=== PATIENT | female | born 1970 | race Caucasian/White ===

== ENCOUNTER 2016-07-22 20:40 | Emergency (ER) | payer OTHER ==
[2016-07-22 20:52] VITALS: TEMP 99; BMI 25.1
[2016-07-22] MEDS ORDERED: SODIUM CHLORIDE 1,000 ML IV STA (21:01)
[2016-07-22] MEDS ORDERED: ONDANSETRON 4 MG/2 ML VIAL IVPB ONE (21:01)
--- NOTE | 2016-07-22 21:02 | PDOC ---
History of Present Illness - General History Source: Patient Exam Limitations: No Limitations - History of Present Illness Initial Comments: 07/22/16 22:59 The patient is a 46 year old female, with a significant past medical history of hyperparathyroidism and kidney stones, who presents to the emergency department with abdominal pain onset today. She describes her pain as localized in the left lower quadrant, ranging from mild to moderate, with radiation to her left flank. She notes that certain movements exacerbates her pain. The patient denies chest pain, shortness of breath, headache and dizziness. Denies fever, chills, nausea, vomit, diarrhea and constipation. Denies dysuria, frequency, urgency and hematuria. Allergies: None Past surgical history: Thyroid surgery (12/2015), kidney stone removal Social history: +Social alcohol use. No tobacco or drug use reported <David Dixon - Last Filed: 07/23/16 00:22> <Saray Dunlap - Last Filed: 07/23/16 01:19> - General Chief Complaint: Pain, Acute Stated Complaint: ABDOMINAL PAIN, VOMITING Time Seen by Provider: 07/22/16 21:01 Past History <David Dixon - Last Filed: 07/23/16 00:22> - Past Medical History Anemia: No Asthma: No Cancer: No Cardiac Disorders: No CVA: No COPD: No CHF: No Dementia: No Diabetes: No GI Disorders: No Disorders: No HTN: No Hypercholesterolemia: No Liver Disease: No Seizures: No Thyroid Disease: Yes - Psycho/Social/Smoking Cessation Hx Suicidal Ideation: No Smoking History: Never smoked Information on smoking cessation initiated: No Hx Alcohol Use: Yes (weekends) Drug/Substance Use Hx: No Substance Use Type: None <Saray Dunlap - Last Filed: 07/23/16 01:19> - Past Medical History Allergies/Adverse Reactions: Allergies Allergy/AdvReac Type Severity Reaction Status Date / Time No Known Drug Allergies Allergy Verified 07/22/16 20:50 Home Medications: Ambulatory Orders Levothyroxine [Synthroid -] 50 mcg PO DAILY 12/21/15 Ketorolac Tromethamine [Toradol] 10 mg PO Q6H PRN #12 tablet 07/23/16 Sulfamethoxazole/Trimethoprim [Bactrim Ds -] 1 tab PO BID #14 tablet 07/23/16 Tamsulosin HCl [Flomax] 0.4 mg PO DAILY #7 capsule 07/23/16 Review of Systems - Review of Systems Able to Perform ROS?: Yes Comments:: 07/22/16 22:59 GENERAL/CONSTITUTIONAL: No fever or chills. No weakness. HEAD, EYES, EARS, NOSE AND THROAT: No change in vision. No ear pain or discharge. No sore throat. CARDIOVASCULAR: No chest pain or shortness of breath RESPIRATORY: No cough, wheezing, or hemoptysis. GASTROINTESTINAL: +Left lower quadrant pain. No nausea, vomiting, diarrhea or constipation. GENITOURINARY: +Left flank pain. No dysuria, frequency, or change in urination. MUSCULOSKELETAL: No joint or muscle swelling or pain. No neck or back pain. SKIN: No rash NEUROLOGIC: No headache, vertigo, loss of consciousness, or change in strength/ sensation. ENDOCRINE: No increased thirst. No abnormal weight change HEMATOLOGIC/LYMPHATIC: No anemia, easy bleeding, or history of blood clots. ALLERGIC/IMMUNOLOGIC: No hives or skin allergy. <David Dixon - Last Filed: 07/23/16 00:22> *Physical Exam - Vital Signs Last Vital Signs Temp Pulse Resp BP Pulse Ox 99 F 89 18 154/89 100 07/22/16 20:50 07/22/16 20:50 07/22/16 20:50 07/22/16 20:50 07/22/16 20:50 - Physical Exam Comments: 07/22/16 23:03 GENERAL: Awake, alert, and fully oriented, in mild distress HEAD: No signs of trauma, normocephalic, atraumatic EYES: PERRLA, EOMI, sclera anicteric, conjunctiva clear ENT: Auricles normal inspection, hearing grossly normal, nares patent, oropharynx clear without exudates. Moist mucosa NECK: Normal ROM, supple, no lymphadenopathy, JVD, or masses LUNGS: No distress, speaks full sentences, clear to auscultation bilaterally HEART: Regular rate and rhythm, normal S1 and S2, no murmurs, rubs or gallops, peripheral pulses normal and equal bilaterally. ABDOMEN: Soft, nontender, normoactive bowel sounds. No guarding, no rebound. No masses EXTREMITIES: Normal inspection, Normal range of motion, no edema. No clubbing or cyanosis. NEUROLOGICAL: Cranial nerves II through XII grossly intact. Normal speech, normal gait, no focal sensorimotor deficits SKIN: Warm, Dry, normal turgor, no rashes or lesions noted. <David Dixon - Last Filed: 07/23/16 00:22> - Vital Signs Last Vital Signs Temp Pulse Resp BP Pulse Ox 99 F 89 18 154/89 100 07/22/16 20:50 07/22/16 20:50 07/22/16 20:50 07/22/16 20:50 07/22/16 20:50 <Saray Dunlaph - Last Filed: 07/23/16 01:19> ED Treatment Course - LABORATORY CBC & Chemistry Diagram: 07/22/16 21:20 07/22/16 21:20 - ADDITIONAL ORDERS Additional order review: Laboratory Results 07/22/16 07/22/16 21:20 21:20 Sodium 140 Potassium 3.9 Chloride 101 Carbon Dioxide 30 Anion Gap 9 BUN 15 Creatinine 0.8 Creat Clearance w eGFR > 60 Random Glucose 97 Calcium 10.1 Total Bilirubin 0.5 AST 15 ALT 17 Alkaline Phosphatase 139 H Total Protein 8.1 Albumin 4.3 Lipase 155 Serum , Qual Negative 07/22/16 21:20 RBC 5.84 H MCV 95.0 MCHC 34.1 RDW 14.0 MPV 8.8 Neutrophils % 84.2 H Lymphocytes % 10.2 Monocytes % 5.2 Eosinophils % 0.1 Basophils % 0.3 - RADIOLOGY Radiograph Interpretation: 07/23/16 00:22 CT Abdomen and pelvis without contrast Reviewed by: Dr. Bryson Garcia Impression: Moderate degree of left-sided hydronephrosis and mild perinephric inflammation secondary to a 6 x 5 mm distal ureteral stone - Medications Given in the ED: ED Medications Discontinued Medications Generic Name Dose Route Start Last Admin Trade Name Freq PRN Reason Stop Dose Admin Sodium Chloride 1,000 mls @ 1,000 mls/hr 07/22/16 21:01 07/22/16 21:23 Normal Saline - IV 07/22/16 22:00 1,000 mls/hr ASDIR STA Administration Ondansetron HCl 4 mg 07/22/16 21:01 07/22/16 21:24 Zofran Injection IVPB 07/22/16 21:02 4 mg ONCE ONE Administration <David Dixon - Last Filed: 07/23/16 00:22> - LABORATORY CBC & Chemistry Diagram: 07/22/16 21:20 07/22/16 21:20 <Saray Dunlap - Last Filed: 07/23/16 01:19> Medical Decision Making - Medical Decision Making 07/23/16 01:06 pt has PMH of kidney stones and reports having had lithotripsy at [facility] by Dr Bethel Boston in 2016 -I told her she has a large kidney stone in her left ureter and it will probably need surgery because of its size -no fever,no vomiting - labs reviewed Although I feel this pt will not pass her stone spontaneously she wants to go home. She feels she can see her urologist tomorrow at [facility] RX cipro,toradol,flomax will be eprescribed to her pharmacy Diag: left hydronephrosis /left 6mm ureteral stone plan- see her urologist at [facility] <Saray Dunlap - Last Filed: 07/23/16 01:19> *DC/Admit/Observation/Transfer - Attestations Scribe Attestion: 07/22/16 23:03 Documentation prepared by David Dixon, acting as medical cash poster for Saray Dunlap MD <David Dixon - Last Filed: 07/23/16 00:22> <Saray Dunlap - Last Filed: 07/23/16 01:19> Diagnosis at time of Disposition: Calculus of left kidney Hydronephrosis Qualifiers: Hydronephrosis type: with ureteral calculous obstruction Qualified Code(s): N13.2 - Hydronephrosis with renal and ureteral calculous obstruction - Discharge Dispostion Disposition: HOME Condition at time of disposition: Stable - Patient Instructions Printed Discharge Instructions: DI for Kidney Stones Additional Instructions: -please see your urologist as soon as possible -please black pickler your medications at your pharmacy -return if you have any worsening symptoms
[2016-07-22] MEDS ORDERED: ONDANSETRON 4 MG/2 ML VIAL ONE (21:12)
[2016-07-22 21:29] LABS: BASOPHIL 0.3 % (0-2.0); EOSINOPHIL 0.1 % (0-4.5); MCH 32.4 pg (25.7-33.7); MCHC 34.1 g/dl (32.0-36.0); MEAN PLT VOLUME 8.8 fl (7.5-11.1); NEUTROPHILS 84.2 % (42.8-82.8); PLATELET COUNT 196 K/MM3 (134-434); WHITE BLOOD COUNT 10.5 K/mm3 (4.0-10.0)
[2016-07-22 21:52] LABS: ALBUMIN 4.3 g/dl (3.4-5.0); ALK PHOS 139 U/L (45-117); ANION GAP 9 (8-16); BILIRUBIN,TOTAL 0.5 mg/dL (0.2-1.0); CALCIUM 10.1 mg/dL (8.5-10.1); CO2 30 mmol/L (21-32); CREATININE 0.8 mg/dL (0.55-1.02); GLUCOSE,RANDOM 97 mg/dL (74-106); SGOT/AST 15 U/L (15-37); SGPT/ALT 17 U/L (12-78); TOT PROT 8.1 g/dl (6.4-8.2)
[2016-07-22] MEDS ORDERED: KETOROLAC TROMETHAMINE 30 MG/1 ML VIAL IVPUSH ONE (22:58)
[2016-07-22] MEDS ORDERED: KETOROLAC TROMETHAMINE 30 MG/1 ML VIAL ONE (23:00)
[2016-07-23] MEDS ORDERED: TAMSULOSIN HCL 0.4 MG CAP.ER.24H (FP) PO ONE (01:05)
[2016-07-23] MEDS ORDERED: LEVOFLOXACIN 500 MG TABLET (FP) PO ONE (01:06)
[2016-07-23] MEDS ORDERED: TAMSULOSIN HCL 0.4 MG CAP.ER.24H (FP) ONE (01:08)
[2016-07-23] MEDS ORDERED: LEVOFLOXACIN 500 MG TABLET (FP) ONE (01:08)
[2016-07-23 01:32] VITALS: BP 134/87; PULSE 80
== END 2016-07-23 01:38 | disposition home or self-care (01) ==
LOC: JER 20:40
PROC: 3E0333Z Introduction of Anti-inflammatory into Peripheral Vein, Percutaneous Approach (ICD-10-PCS; principal; 2016-07-22)
PROC: 3E033GC Introduction of Other Therapeutic Substance into Peripheral Vein, Percutaneous Approach (ICD-10-PCS; 2016-07-22)
DX: N13.2 Hydronephrosis with renal and ureteral calculous obstruction (principal)
CPT/HCPCS: 36415; 74176; 80053; 83690; 84703; 85025; 99283-25